=== PATIENT | male | born 1995 | race African-American/Black ===

== ENCOUNTER 2016-12-23 04:41 | Emergency (ER) | payer SELFPAY ==
[2016-12-23] MEDS ORDERED: Ibuprofen 200 MG TAB ONE (04:54)
[2016-12-23] MEDS ORDERED: HYDROcodone/Acetaminophen 5/325 mg Tablet ONE (05:47)
--- NOTE | 2016-12-23 07:37 | RAD ---
THREE VIEWS LEFT ANKLE: COMPARISON: None. HISTORY: Left ankle injury playing basketball with pain. FINDINGS: Three views left ankle show no evidence of acute fracture or dislocation. No degenerative changes a re seen. Minimal soft tissue swelling is present. IMPRESSION: Unremarkable exam. POS: [facility]
== END 2016-12-23 06:28 | disposition home or self-care (01) ==
LOC: ERS 04:41
DX: S93.402A Sprain of unspecified ligament of left ankle, initial encounter (principal); F17.210 Nicotine dependence, cigarettes, uncomplicated; W18.30XA Fall on same level, unspecified, initial encounter

== ENCOUNTER 2022-07-30 10:10 | Emergency (ER) | payer SELFPAY ==
[2022-07-30] MEDS ORDERED: Lidocaine 1% PF 5 ML VIAL ONE (12:39)
[2022-07-30] MEDS ORDERED: Ondansetron ODT 4 MG TAB ONE (12:52)
== END 2022-07-30 13:45 | disposition home or self-care (01) ==
LOC: ERS 10:10
DX: S61.213A Laceration without foreign body of left middle finger without damage to nail, initial encounter (principal); S61.211A Laceration without foreign body of left index finger without damage to nail, initial encounter; F17.290 Nicotine dependence, other tobacco product, uncomplicated; W29.3XXA Contact with powered garden and outdoor hand tools and machinery, initial encounter; Z23 Encounter for immunization
CPT/HCPCS: 12001; Q0162

== ENCOUNTER 2023-03-08 10:02 | Emergency (ER) | payer SELFPAY | END 2023-03-08 11:20 | disposition home or self-care (01) | LOC: ERS 10:02 | DX: S56.012A Strain of flexor muscle, fascia and tendon of left thumb at forearm level, initial encounter (principal); X50.1XXA Overexertion from prolonged static or awkward postures, initial encounter | CPT/HCPCS: 99283 ==